=== PATIENT | male | born 1980 | race African-American/Black ===

== ENCOUNTER 2025-01-30 17:41 | Emergency (ER) | payer MEDICAID ==
[~2025-01-30] VITALS: Ht 175.3 cm; Wt 77.0 kg
[2025-01-30 17:48] VITALS: O2SAT 99
[2025-01-30 19:21] LABS: BASOPHILS % 0.6 % (0.0-2.0); EOSINOPHILS % 0.5 % (0.0-5.0); HEMATOCRIT. 46.5 % (42.0-52.0); HEMOGLOBIN. 15.4 g/dL (14.0-18.0); LYMPHOCYTES % 45.0 % (20.0-50.0); MEAN PLATELET VOLUME 8.5 fl (7.4-10.4); MONOCYTES % 5.0 % (2.0-8.0); NEUTROPHILS % 48.9 % (40.0-76.0); PLATELET 266 x1000/uL (130-400); RED BLOOD CELL COUNT 5.80 mill/uL (4.7-6.1); RED CELL DISTRIBUTION WIDTH 13.2 % (11.6-14.6)
[2025-01-30 19:33] VITALS: BP 119/70; PULSE 82; RESP 14; TEMP 37.1; O2SAT 98
[2025-01-30 19:39] LABS: CREATININE 1.2 mg/dL (0.6-1.3); ETHANOL BLOOD < 10 mg/dL (<10); TROPONIN I HIGH SENSITIVITY < 4 ng/L (3.0-53); UREA NITROGEN BLOOD 10 mg/dL (9-23)
== END 2025-01-30 20:30 | disposition home or self-care (01) ==
LOC: ER 17:41
DX: R55 Syncope and collapse (principal); E11.65 Type 2 diabetes mellitus with hyperglycemia
CPT/HCPCS: 36415; 71045; 80048; 80320; 84484; 85025; 99284; G0480